=== PATIENT | female | born 1975 | race Caucasian/White ===

== ENCOUNTER 2022-07-05 08:22 | Outpatient (CLI) | payer OTHER, BC, SELFPAY | END 2022-07-05 08:23 | disposition home or self-care (01) | LOC: INJ CL 08:24 | PROVIDERS: PCP Family Medicine; Referring Provider Family Medicine; Visit Provider Family Medicine | DX: M54.16 Radiculopathy, lumbar region (principal); M51.36 Other intervertebral disc degeneration, lumbar region | CPT/HCPCS: 62323; J0702; Q9966 ==

== ENCOUNTER 2023-08-29 08:22 | Outpatient (CLI) | payer OTHER, BC, SELFPAY | END 2023-08-29 08:23 | disposition home or self-care (01) | LOC: INJ CL 08:23 | PROVIDERS: PCP Family Medicine; Visit Provider Family Medicine | DX: M54.16 Radiculopathy, lumbar region (principal); M51.36 Other intervertebral disc degeneration, lumbar region | CPT/HCPCS: 62323; J0702; Q9966 ==

== ENCOUNTER 2023-11-03 15:24 | Outpatient (CLI) | payer OTHER, BC, SELFPAY | END 2023-11-03 15:25 | disposition home or self-care (01) | PROVIDERS: PCP Family Medicine; Visit Provider Family Medicine | DX: M54.16 Radiculopathy, lumbar region (principal); M51.36 Other intervertebral disc degeneration, lumbar region | CPT/HCPCS: 62323; J0702; Q9966 ==

== ENCOUNTER 2023-12-26 08:05 | Outpatient (CLI) | payer OTHER, BC, SELFPAY | END 2023-12-26 08:06 | disposition home or self-care (01) | LOC: INJ CL 08:05 | PROVIDERS: PCP Family Medicine; Visit Provider Family Medicine | DX: M54.16 Radiculopathy, lumbar region (principal); M51.36 Other intervertebral disc degeneration, lumbar region | CPT/HCPCS: 64483; J1100; Q9966 ==

== ENCOUNTER 2024-05-14 08:28 | Outpatient (CLI) | payer OTHER, SELFPAY | END 2024-05-14 08:29 | disposition home or self-care (01) | LOC: INJ CL 08:29 | PROVIDERS: PCP Family Medicine; Visit Provider Family Medicine | DX: M54.16 Radiculopathy, lumbar region (principal); M51.36 Other intervertebral disc degeneration, lumbar region | CPT/HCPCS: 64483; J1100; Q9966 ==

== ENCOUNTER 2024-10-11 08:11 | Outpatient (CLI) | payer OTHER, SELFPAY | END 2024-10-11 08:12 | disposition home or self-care (01) | LOC: INJ CL 08:12 | PROVIDERS: PCP Family Medicine; Visit Provider Family Medicine | DX: M54.16 Radiculopathy, lumbar region (principal); M51.26 Other intervertebral disc displacement, lumbar region | CPT/HCPCS: 64483; J1100; Q9966 ==

== ENCOUNTER 2025-08-12 09:31 | Outpatient (CLI) | payer OTHER, SELFPAY | END 2025-08-12 09:32 | disposition home or self-care (01) | LOC: INJ CL 09:31 | PROVIDERS: PCP Family Medicine; Visit Provider Family Medicine | DX: M54.16 Radiculopathy, lumbar region (principal); M51.369 Other intervertebral disc degeneration, lumbar region without mention of lumbar back pain or lower extremity pain | CPT/HCPCS: 64483; Q9966 ==